=== PATIENT | male | born 1985 | race African-American/Black ===

== ENCOUNTER 2019-10-17 12:15 | Emergency (ER) | payer OTHER, SELFPAY ==
[2019-10-18 14:49] LABS: SARS-CoV-2 MS2 Positive; SARS-CoV-2 N Gene Positive; SARS-CoV-2 S Gene Positive; SARS-CoV-2 orf1ab Positive
== END 2019-10-17 13:15 | disposition home or self-care (01) ==
LOC: ERS 12:15
DX: U07.1 COVID-19 (principal); F17.200 Nicotine dependence, unspecified, uncomplicated
CPT/HCPCS: 87635; 99283; U0003